=== PATIENT | female | born 1990 | race American Indian/Alaskan Native ===

== ENCOUNTER 2017-04-10 18:35 | Emergency (ER) | payer OTHER ==
[2017-04-10] MEDS ORDERED: Lactated Ringer's 1,000 ML IVB ONE (20:06)
[2017-04-10] MEDS ORDERED: Lactated Ringer's 1,000 ML ONE (20:16)
[2017-04-10 20:19] LABS: BASO % 0.2 % (0.0-2.0); EOS % 0.4 % (0.0-4.0); HEMOGLOBIN 14.2 g/dL (11.0-16.0); LYMPH # 0.8 K/uL (1.0-4.3); LYMPH % 6.9 % (20.0-40.0); MEAN CELL VOLUME 83.5 fL (81.0-99.0); MEAN CORPUSCULAR HEMOGLOBIN 27.3 pg (27.0-31.0); MEAN CORPUSCULAR HGB CONC 32.6 g/dL (33.0-37.0); MEAN PLATELET VOLUME 9.5 fL (7.2-11.7); MONO # 0.6 K/uL (0.0-0.8); NEUT % 87.5 % (50.0-75.0); PLATELET COUNT 238 K/uL (130-400); RBC 5.19 Mil/uL (3.80-5.20); RED CELL DISTRIBUTION WIDTH 13.1 % (11.5-14.5); WHITE BLOOD COUNT 11.4 K/uL (4.8-10.8)
[2017-04-10 20:26] LABS: HCG,QUALITATIVE URINE NEGATIVE (NEGATIVE); SQUAMOUS EPITHIAL 18 /hpf (0-5); URINE BACTERIA MOD (<OCC); URINE BILIRUBIN NEGATIVE (NEGATIVE); URINE BLOOD 2+ (NEGATIVE); URINE CLARITY Hazy (Clear); URINE COLOR Yellow (YELLOW); URINE GLUCOSE (UA) NORMAL (Normal); URINE LEUKOCYTE ESTERASE 3+ Leu/uL (Negative); URINE NITRATE NEGATIVE (NEGATIVE); URINE PROTEIN NEGATIVE (NEGATIVE); URINE UROBILINOGEN NORMAL mg/dL (0.2-1.0)
[2017-04-10 20:27] LABS: ALBUMIN 4.5 g/dL (3.5-5.0)
[2017-04-10 20:30] LABS: ALB/GLOB RATIO 1.3 (1.0-2.1); AST/SGOT 20 U/L (14-36); BLOOD UREA NITROGEN 11 mg/dL (7-17); GFR AFRICAN-AMERICAN > 60; GFR NON-AFRICAN AMERICAN > 60
[2017-04-10 20:31] LABS: ALT/SGPT 32 U/L (9-52); CALCIUM 8.7 mg/dl (8.6-10.4); LIPASE 129 U/L (23-300)
[2017-04-10] MEDS ORDERED: DiphenhydrAMINE 50 mg/ml Inj ONE (20:35)
[2017-04-10] MEDS ORDERED: DiphenhydrAMINE 50 mg/ml Inj IVP STA (20:41)
[2017-04-10 21:39] LABS: EOSINOPHIL 1 % (0-4); LYMPHOCYTE 5 % (20-40); MONOCYTE 2 % (0-10); NEUTROPHIL 92 % (50-75); PLATELET ESTIMATE NORMAL (NORMAL); TOTAL CELLS COUNTED 100
[2017-04-10 21:44] VITALS: BP 105/64; PULSE 92; RESP 16; TEMP 98.5; O2SAT 100
--- NOTE | 2017-04-10 21:55 | C.PDOC ---
Time Seen by Provider: 04/10/17 19:49 Chief Complaint (Nursing): Abdominal Pain History Per: Patient Onset/Duration Of Symptoms: Days (few) Current Symptoms Are (Timing): Still Present Severity: Moderate Location Of Pain/Discomfort: Epigastric Radiation Of Pain To:: None Quality Of Discomfort: Unable To Describe, Burning, "Pain" Associated Symptoms: Diarrhea Exacerbating Factors: Food Alleviating Factors: None Last Bowel Movement: Today Recent travel outside of the [place]: No Additional History Per: Prior Records Past Medical History Reviewed: Historical Data, Nursing Documentation, Vital Signs Vital Signs: Last Vital Signs Temp 98.5 F 04/10/17 21:44 Pulse 92 H 04/10/17 21:44 Resp 16 04/10/17 21:44 BP 105/64 04/10/17 21:44 Pulse Ox 100 04/10/17 21:44 - Medical History PMH: Asthma Surgical History: No Surg Hx Family History: States: Unknown Family Hx - Social History Hx Alcohol Use: No Hx Substance Use: No - Immunization History Hx Tetanus Toxoid Vaccination: No Hx Influenza Vaccination: No Hx Pneumococcal Vaccination: No Review Of Systems Except As Marked, All Systems Reviewed And Found Negative. Constitutional: Negative for: Fever Cardiovascular: Negative for: Chest Pain Respiratory: Negative for: Shortness of Breath Gastrointestinal: Positive for: Abdominal Pain, Diarrhea. Negative for: Vomiting, Melena, Hematochezia, Hematemesis Genitourinary: Negative for: Dysuria Musculoskeletal: Negative for: Neck Pain, Back Pain Skin: Negative for: Rash Neurological: Negative for: Weakness, Numbness, Seizures, Altered Mental Status Physical Exam - Physical Exam Appears: Non-toxic, No Acute Distress Skin: Normal Color, Warm, Dry, No Rash Head: Atraumatic, Normacephalic Eye(s): bilateral: Normal Inspection, PERRL, EOMI Oral Mucosa: Moist Neck: Normal ROM, Supple Cardiovascular: Rhythm Regular Respiratory: Normal Breath Sounds, No Accessory Muscle Use Gastrointestinal/Abdominal: Soft, Tenderness (mild epigastric), No Guarding, No Rebound Back: No CVA Tenderness Extremity: Normal ROM Neurological/Psych: Oriented x3, Normal Motor, Normal Sensation ED Course And Treatment - Laboratory Results Result Diagrams: 04/10/17 20:15 04/10/17 20:15 Urine POC: Negative O2 Sat by Pulse Oximetry: 100 Pulse Ox Interpretation: Normal Progress - Interventions Interventions:: Observation, Intravenous fluid - Medications Administered Intravenous: Antiemetic, H-2 jett - Data Reviewed Data Reviewed: Lab, Old records - Patient Status Patient status: Mostly improved - Continuity of Care Discussed patient case with:: Patient, ED Nurse - Patient Plan Patient Plan: Discharge, F/U with PCP Disposition Counseled Patient/Family Regarding: Studies Performed, Diagnosis, Need For Followup, Rx Given - Disposition Disposition: HOME/ ROUTINE Disposition Time: 22:05 Condition: IMPROVED Additional Instructions: Drink plenty of fluids. Follow up with your doctor within 4-5 days for further evaluation and treatment. Return to the ER if you develop fever, vomiting, bloody stools, worsening of symptoms or if you have any other concerns. Prescriptions: Ciprofloxacin [Cipro] 1 tab PO BID #10 tab Famotidine [Pepcid] 20 mg PO BID #30 tab Instructions: Acute Diarrhea (ED) - Clinical Impression Clinical Impression: Infectious diarrhea, Abdominal pain
== END 2017-04-10 22:15 | disposition home or self-care (01) ==
LOC: C.ER 18:35
DX: A09 Infectious gastroenteritis and colitis, unspecified (principal); R10.13 Epigastric pain
CPT/HCPCS: 80053; 81001; 83690; 84703; 85025; 96361; 96374; 96375; 99285; J1200; J2765; J7120

== ENCOUNTER 2018-04-24 05:56 | Emergency (ER) | payer OTHER ==
[2018-04-24 06:08] VITALS: RESP 20
[2018-04-24] MEDS ORDERED: Lidocaine 5% Patch TD STA (06:18)
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
[2018-04-24] MEDS ORDERED: Lidocaine 5% Patch TD ONE (06:25)
[2018-04-24 07:03] VITALS: BP 118/70; PULSE 85; TEMP 98.6; O2SAT 98
== END 2018-04-24 07:03 | disposition home or self-care (01) ==
LOC: C.ER 05:56
DX: S23.3XXA Sprain of ligaments of thoracic spine, initial encounter (principal); V49.49XA Driver injured in collision with other motor vehicles in traffic accident, initial encounter; Y92.410 Unspecified street and highway as the place of occurrence of the external cause
CPT/HCPCS: 96372; 99284; J1885

== ENCOUNTER 2018-06-30 23:12 | Emergency (ER) | payer OTHER ==
[2018-06-30 23:36] VITALS: BP 115/72; PULSE 85; RESP 20; TEMP 97.9; O2SAT 99
--- NOTE | 2018-07-01 00:08 | C.PDOC ---
History Of Present Illness 27 y/o female presents to the ED for evaluation of pain over the left foot, gradually developing for the past week. Patient notes symptoms began after she stepped on sea urchin. Otherwise patient denies fever, chills, left foot swelling, open wounds, discharge, weakness, or sensorivascular deficits. Time Seen by Provider: 06/30/18 23:33 Chief Complaint (Nursing): Abnormal Skin Integrity History Per: Patient History/Exam Limitations: no limitations Onset/Duration Of Symptoms: Days Current Symptoms Are (Timing): Still Present Location Of Injury: Left: Foot Past Medical History Reviewed: Historical Data, Nursing Documentation, Vital Signs Vital Signs: Last Vital Signs Temp 97.9 F 06/30/18 23:33 Pulse 85 06/30/18 23:33 Resp 20 06/30/18 23:33 BP 115/72 06/30/18 23:33 Pulse Ox 99 06/30/18 23:33 - Medical History PMH: Asthma Family History: States: Unknown Family Hx - Social History Hx Alcohol Use: No Hx Substance Use: No - Immunization History Hx Tetanus Toxoid Vaccination: No Hx Influenza Vaccination: Yes Hx Pneumococcal Vaccination: No Review Of Systems Constitutional: Negative for: Fever, Chills Musculoskeletal: Positive for: Foot Pain (left), Other (No swelling) Skin: Negative for: Rash, Lesions, Other (drainage) Neurological: Negative for: Weakness, Numbness, Incoordination Physical Exam - Physical Exam Appears: Well, Non-toxic, No Acute Distress Skin: Normal Color, Warm, Other (Left foot: scattered tiny sea urchin spines noted to plantar aspect over football. No edema, no erythema, no discharge, no flactualnce, no proximal streaking.) Head: Normacephalic Eye(s): bilateral: PERRL Nose: No Flaring, No Discharge Oral Mucosa: Moist, No Drooling Tongue: No Swelling Lips: No Swelling Throat: No Drooling, Other (uvula midline, no edema.) Neck: Trachea Midline, Supple Cardiovascular: Rhythm Regular, No Murmur, No JVD Respiratory: No Decreased Breath Sounds, No Accessory Muscle Use, No Stridor, No Wheezing Gastrointestinal/Abdominal: Soft, No Tenderness Extremity: Normal ROM (Left foot, no neurovascular deficits.), Tenderness (Left foot mild tenderness over plantar aspect. no edema, no cellulitis, no erythema, no flactulance.), No Deformity, No Swelling Pulses: Left Femoral: Normal, Left Dorsalis Pedis: Normal Neurological/Psych: Oriented x3, Normal Speech, Normal Motor, Normal Sensation, Normal Reflexes ED Course And Treatment O2 Sat by Pulse Oximetry: 99 (RA) Pulse Ox Interpretation: Normal Progress Note: On re-eval, pt is afebrile, hemodynamicaly stable, non-toxic. PulsEOx 99% RA. ENT: no acute findings. Neck: Supple, (-) meningeal sign. Neurologically intact. LLE: Left foot with mild tenderness, (-) cellulitis, erythema, or fluctuance. Patient stable for dc home, provided rx for bacitracin ointment. Advised patient regarding follow-up instructions and course of ds. Ref. to f/u with PMD in 1-2 days for re-eval. return to ED if any worsening or new changes. Disposition Counseled Patient/Family Regarding: Diagnosis, Need For Followup - Disposition Referrals: [facility] [Outside] Disposition: HOME/ ROUTINE Disposition Time: 00:07 Condition: STABLE Additional Instructions: Warm salty water foot soaks with 1 table spoon plain vinegar daily for 5-10 minutes Apply cream topically Follow up with podiatry Clinic on Friday from NOON-3PM for re-evaluation. 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 - Scribe Statement The provider has reviewed the documentation as recorded by the Scribe (Shelby Monae) All medical record entries made by the Scribe were at my direction and personally dictated by me. I have reviewed the chart and agree that the record accurately reflects my personal performance of the history, physical exam, medical decision making, and the department course for this patient. I have also personally directed, reviewed, and agree with the discharge instructions and disposition.
== END 2018-07-01 00:23 | disposition home or self-care (01) ==
LOC: C.ER 23:12
DX: S90.852A Superficial foreign body, left foot, initial encounter (principal); W45.8XXA Other foreign body or object entering through skin, initial encounter

== ENCOUNTER 2019-02-11 20:29 | Emergency (ER) | payer OTHER ==
[2019-02-11 20:42] VITALS: BP 124/81; PULSE 77; TEMP 98; O2SAT 99
--- NOTE | 2019-02-11 21:39 | C.PDOC ---
History Of Present Illness 28 y/o female, with no PMHx, presents to ED with one week history of left knee pain. Patient states she flew to [place] last week (6 hour flight) and 3 days into her trip she started feeling pain to the posterior aspect of left knee, which has neither gotten better or worse since onset. Denies any trauma, reports she may have been walking more than usually while on her trip. Patient takes oral contraceptives. Denies smoking. Denies SOB, chest pain, palpitations, dizziness, inability to bear weight, erythema to the leg. Time Seen by Provider: 02/11/19 20:47 Chief Complaint (Nursing): Lower Extremity Problem/Injury History Per: Patient History/Exam Limitations: no limitations Onset/Duration Of Symptoms: Days Current Symptoms Are (Timing): Still Present Past Medical History Reviewed: Historical Data, Nursing Documentation, Vital Signs Vital Signs: Last Vital Signs Temp 98 F 02/11/19 20:34 Pulse 77 02/11/19 20:34 Resp 18 02/11/19 20:34 BP 124/81 02/11/19 20:34 Pulse Ox 99 02/11/19 20:34 Primary Care Provider: Ryann Hope - Medical History PMH: Asthma Family History: States: No Known Family Hx - Social History Hx Alcohol Use: No Hx Substance Use: No - Immunization History Hx Tetanus Toxoid Vaccination: No Hx Influenza Vaccination: Yes Hx Pneumococcal Vaccination: No Review Of Systems Except As Marked, All Systems Reviewed And Found Negative. Constitutional: Negative for: Fever, Chills Cardiovascular: Negative for: Chest Pain, Palpitations Respiratory: Negative for: Shortness of Breath Musculoskeletal: Positive for: Other (left knee pain). Negative for: Neck Pain Skin: Negative for: Rash Neurological: Negative for: Weakness, Numbness, Dizziness Physical Exam - Physical Exam Appears: Non-toxic, No Acute Distress Skin: Warm, Dry Head: Normacephalic Cardiovascular: Rhythm Regular (not tachycardic), No Murmur Respiratory: Normal Breath Sounds Extremity: Normal ROM (has full ROM of both knees), Tenderness (left knee mildly tender anteriorly, moderately tender posteriorly in the proximal calf), Calf Tenderness (left), Swelling (Minimal swelling to left posterior knee, no erythema) Extremity: Bilateral: Atraumatic, Normal Color And Temperature Pulses: Left Dorsalis Pedis: Normal, Right Dorsalis Pedis: Normal Neurological/Psych: Oriented x3, Normal Speech, Normal Motor (5/5 strength bilateral lower extremities), Normal Sensation Gait: Steady ED Course And Treatment O2 Sat by Pulse Oximetry: 99 Progress Note: Gave motrin for pain. Concern for possible DVT (long flight, OCP use, calf pain), will check D-dimer as US unavailable at this time. // D-dimer slightly elevated, given Lovenox and told to return tomorrow morning for US and patient expressed understanding Disposition Counseled Patient/Family Regarding: Studies Performed, Diagnosis, Need For Followup - Disposition Disposition: HOME/ ROUTINE Disposition Time: 21:55 Condition: GOOD Additional Instructions: You were seen in the ED for left leg pain. Your D-dimer (the blood test that detects clots) was slightly elevated, but as discussed, this can be falsely elevated in several situations. You might have a blood clot in your leg but you need further tests to confirm. You were given an injection of a blood thinner (Lovenox) here. You need to return to the ED tomorrow morning after 8am to get an ultrasound of your leg to see if there is a clot. Return to the ED immediately if you have shortness of breath or chest pain. 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 - Scribe Statement The provider has reviewed the documentation as recorded by the Brettibalfonso Piper All medical record entries made by the Brettibalfonso were at my direction and personally dictated by me. I have reviewed the chart and agree that the record accurately reflects my personal performance of the history, physical exam, medical decision making, and the department course for this patient. I have also personally directed, reviewed, and agree with the discharge instructions and disposition.
[2019-02-11] MEDS ORDERED: Enoxaparin 80 mg Syringe SC STA (21:51)
[2019-02-11] MEDS ORDERED: Enoxaparin 80 mg Syringe ONE (22:06)
[2019-02-11 22:19] VITALS: RESP 20
== END 2019-02-11 22:18 | disposition home or self-care (01) ==
LOC: C.ER 20:29
DX: M79.605 Pain in left leg (principal)
CPT/HCPCS: 85378; 96372; 99284; J1650

== ENCOUNTER 2019-02-12 13:32 | Emergency (ER) | payer OTHER | END 2019-02-12 15:39 | disposition home or self-care (01) | LOC: C.ER 13:32 ==